=== PATIENT | male | born 1970 | race Caucasian/White ===

== ENCOUNTER 2019-09-25 16:31 | Emergency (ER) | payer OTHER ==
[~2019-09-25] VITALS: Ht 180.3 cm; Wt 109.1 kg
[2019-09-25 16:32] VITALS: BP 143/95
== END 2019-09-25 16:54 | disposition home or self-care (01) ==
LOC: ER 16:31
DX: J06.9 Acute upper respiratory infection, unspecified (principal); Z20.828 Contact with and (suspected) exposure to other viral communicable diseases; R21 Rash and other nonspecific skin eruption; R05 Cough; Z88.0 Allergy status to penicillin
CPT/HCPCS: 36415; 87635; 99283